=== PATIENT | female | born 1960 | race Caucasian/White ===

== ENCOUNTER → 2016-10-18 | Outpatient (CLI) | payer BC ==
[~2016-10-18] MED LIST: ASPIRIN E.C. 8181 MG PO; BENADRYL50 MG PO; BUPROBAN150 MG PO; CALCIUM CITRATE1 TA1 PO; CLARITIN 1010 MG/TAB PO; DOXYCYCLINE 10100 MG PO; FORTEO250 MCG/ML SC; HALDOL 1MG T1 MG/TAB PO; HCTZ 25MG TAB25 MG PO; K-TAB20 PO; KLONOPIN 1MG1 MG PO; LAMICTAL 100MG100 MG PO; LAMICTAL150 MG PO; LEXAPRO 5MG5 MG PO; LITHIUM CI8 MEQ/5 ML PO; MULTIPLE VITAMI1 CAP PO; PROTONIX20 MG PO; XANAX 1MG1 MG PO
== END ==
LOC: BHSO 15:58
DX: F31.81 Bipolar II disorder (principal)

== ENCOUNTER → 2016-11-01 | Outpatient (CLI) | payer BC | LOC: MC.RAD 08:39 | DX: Z12.31 Encounter for screening mammogram for malignant neoplasm of breast (principal); Z85.828 Personal history of other malignant neoplasm of skin ==

== ENCOUNTER → 2017-01-09 | Outpatient (CLI) | payer BC | LOC: BHSO 15:59 | DX: F31.73 Bipolar disorder, in partial remission, most recent episode manic (principal) ==

== ENCOUNTER → 2017-01-31 | Outpatient (CLI) | payer BC | LOC: BHSO 16:22 | DX: F31.73 Bipolar disorder, in partial remission, most recent episode manic (principal) ==

== ENCOUNTER → 2017-03-03 | Outpatient (CLI) | payer BC | LOC: BHSO 16:00 | DX: F31.11 Bipolar disorder, current episode manic without psychotic features, mild (principal) ==

== ENCOUNTER → 2017-03-10 | Outpatient (CLI) | payer BC | LOC: BHSO 09:20 | DX: F31.12 Bipolar disorder, current episode manic without psychotic features, moderate (principal) ==

== ENCOUNTER → 2017-03-24 | Outpatient (CLI) | payer BC | LOC: BHSO 15:26 | DX: F31.73 Bipolar disorder, in partial remission, most recent episode manic (principal) ==

== ENCOUNTER → 2017-04-28 | Outpatient (CLI) | payer BC | LOC: BHSO 11:31 | DX: F31.73 Bipolar disorder, in partial remission, most recent episode manic (principal) ==

== ENCOUNTER → 2017-06-08 | Outpatient (CLI) | payer BC | LOC: BHSO 11:13 | DX: F31.73 Bipolar disorder, in partial remission, most recent episode manic (principal) ==

== ENCOUNTER → 2017-08-14 | Outpatient (CLI) | payer BC | LOC: BHSO 15:50 | DX: F31.73 Bipolar disorder, in partial remission, most recent episode manic (principal) ==

== ENCOUNTER → 2017-09-20 | Outpatient (CLI) | payer BC | LOC: BHSO 14:12 | DX: F31.73 Bipolar disorder, in partial remission, most recent episode manic (principal) | CPT/HCPCS: G0463 ==

== ENCOUNTER → 2017-10-12 | Outpatient (CLI) | payer BC | LOC: BHSO 16:03 | DX: F31.73 Bipolar disorder, in partial remission, most recent episode manic (principal) | CPT/HCPCS: G0463 ==

== ENCOUNTER → 2017-12-04 | Outpatient (CLI) | payer BC | LOC: MC.RAD 11-02 08:20 | DX: Z12.31 Encounter for screening mammogram for malignant neoplasm of breast (principal) ==

== ENCOUNTER → 2019-01-02 | Outpatient (CLI) | payer BC | LOC: MC.RAD 10:09 | DX: Z12.31 Encounter for screening mammogram for malignant neoplasm of breast (principal) ==

== ENCOUNTER → 2020-03-05 | Outpatient (CLI) | payer BC | LOC: MC.RAD 07:22 | DX: Z12.31 Encounter for screening mammogram for malignant neoplasm of breast (principal) ==